=== PATIENT | female | born 1960 | race Caucasian/White ===

== ENCOUNTER 2019-06-04 17:20 | Emergency (ER) | payer OTHER | END 2019-06-04 20:01 | disposition left against medical advice (07) | LOC: ED 17:20 | DX: Z53.21 Procedure and treatment not carried out due to patient leaving prior to being seen by health care provider (principal) ==

== ENCOUNTER 2020-08-28 04:28 | Emergency (ER) | payer OTHER ==
[~2020-08-28] VITALS: Ht 162.6 cm; Wt 114.0 kg
[2020-08-28 04:41] VITALS: Ht 162.6 cm; Wt 114.0 kg
[2020-08-28 05:25] VITALS: BP 167/91
== END 2020-08-28 05:25 | disposition home or self-care (01) ==
LOC: ED 04:28
DX: B02.9 Zoster without complications (principal); J45.909 Unspecified asthma, uncomplicated; Z88.2 Allergy status to sulfonamides